=== PATIENT | male | born 1990 | race Caucasian/White ===

== ENCOUNTER 2024-11-01 06:37 | Outpatient (CLI) | payer BC ==
[2024-11-01] MEDS ORDERED: iohexol 300 MG/1 ML 50ml polymer ONE (06:40)
[2024-11-01] MEDS ORDERED: LIDOcaine 1%/PF 5ML 10 MG/ML VIAL ONE (06:40)
[2024-11-01] MEDS ORDERED: GADOTERATE MEGLUMINE 7.5 MMOL/15 ML VIAL IV ONE (06:41)
[2024-11-01] MEDS ORDERED: LIDOcaine 1% 30ml preserv. free vial ONE (06:41)
== END 2024-11-01 23:59 | disposition home or self-care (01) ==
LOC: RAD 06:37
PROVIDERS: ATTEND Pediatrics Sports Medicine
DX: S43.432A Superior glenoid labrum lesion of left shoulder, initial encounter (principal); M25.512 Pain in left shoulder; X58.XXXA Exposure to other specified factors, initial encounter; Y93.89 Activity, other specified; Y92.89 Other specified places as the place of occurrence of the external cause; Y99.8 Other external cause status
CPT/HCPCS: 23350; 73222; 77002; A9575; J2003; J3490; Q9967; 73040